=== PATIENT | female | born 1935 | race Caucasian/White ===

== ENCOUNTER → 2016-07-19 | Outpatient (CLI) | payer OTHER ==
[~2016-07-19] MED LIST: ACET500C35 PO; CALC-20 PO; CHOL100027 PO; FOLI1TAB7 PO; METH10TA32 PO; MULTTAB58 PO; PRED1SUS3 OPL; VGMOPS OPL
--- NOTE | 2016-07-19 16:52 | MAMMOGRAPHY REPORT ---
BILATERAL DIGITAL DIAGNOSTIC MAMMOGRAM TOMOSYNTHESIS WITH CAD AND TARGETED RIGHT ULTRASOUND: 07/20/19 CLINICAL HISTORY: 80-year-old woman presents for follow-up in the left breast of a grouping of micro calcifications in the upper inner anterior aspect of the breast, and also to reassess the nodular as ymmetry in the middle one third of the right breast, slightly lateral to the nipple on the CC view. Also time of annual screening. TECHNIQUE: Bilateral CC and MLO 2-D digital and tomosynthesis images, spot magnification left CC and ML views were obtained. Current study was also evaluated with a Computer Aided Detection (CAD) sys tem. COMPARISON: Comparison is made to exams dated: 01/04/2016 ultrasound, 01/04/2016 mammogram, 6 ultrasound, 07/01/2015 mammogram, 06/22/2015 mammogram, and 06/18/2014 mammogram - [facility]. BREAST COMPOSITION: The tissue of both breasts is heterogeneously dense, which may obscure small ma sses. FINDINGS: There is a stable amparo-shaped metallic biopsy marker in the upper outer posterior right geoff ast. There are scattered groupings of round microcalcifications bilaterally, stable compared to michael or exams. There is a cluster of differing size punctate amorphous and round microcalcifications in the upper inner anterior left breast which is reevaluated with spot magnification views. On the spo t magnification views this cluster measures approximately 6.7 mm. It does not appear significantly changed comparing back to spot magnification views performed 07/01/2015 and is probably benign. How ever, it was not identified on fulfilled views prior to 2014 and longer stability is needed. Repeat spot magnification views are recommended in 12 months. The nodular asymmetry in the slightly later al middle one third of the right breast on the CC view is less conspicuous compared to prior exams. There is no evidence of a new suspicious mass, focal area of architectural distortion or developing asymmetry bilaterally. Repeat targeted ultrasound was performed in the 11:00 right breast, 1 cm from the nipple, to reevalu ate the ill-defined hypoechoic shadowing area seen on previous ultrasound. This area is less conspi cuous, less hypoechoic and shadowing compared to the prior ultrasound, confirming benignity. IMPRESSION: ACR-BI-RADS CATEGORY 3: PROBABLY BENIGN, TARGETED ULTRASOUND ACR-BI-RADS CATEGORY 3: AR OBABLY BENIGN 1. Stable 6.7 mm cluster of punctate, amorphous and round microcalcifications in the upper inner an terior left breast. Repeat diagnostic mammograms including spot magnification views are recommended in 12 months, to ensure longer stability. 2. Less conspicuous nodular asymmetry in the middle one third of the right breast, confirming benig nity. Overall, no mammographic evidence of malignancy within the right breast. 3. An ill-defined hypoechoic shadowing area in the 11:00 right breast, 1 cm from the nipple seen on prior ultrasound is less conspicuous and has the appearance of sonographically normal tissue on the current ultrasound, confirming benignity. These results and recommendations were discussed with the patient at the time of the exam. Approximately 10% of breast cancers are not detected with mammography. A negative mammographic repor t should not delay biopsy if a clinically suggestive mass is present. Flavia Pederson M.D. ay/:07/19/2016 15:53:17 Lead Solutions Architect: Jodie GARLAND(Tenisha)(Cameron), [facility] letter sent: Follow Up Recommended 3 BI-RADS Code: ACR-BI-RADS Category 3: Probably Benign Ultrasound BI-RADS: ACR-BI-RADS Category 3: P robably Benign
== END | disposition home or self-care (01) ==
LOC: C.MAMM 08:49
PROVIDERS: ATTEND Obstetrics & Gynecology
DX: Z09 Encounter for follow-up examination after completed treatment for conditions other than malignant neoplasm (principal); R93.8 Abnormal findings on diagnostic imaging of other specified body structures; R92.0 Mammographic microcalcification found on diagnostic imaging of breast

== ENCOUNTER → 2017-08-10 | Outpatient (CLI) | payer OTHER ==
[~2017-08-10] MED LIST changes: -FOLI1TAB7 PO; +FOLI1TAB8 PO
--- NOTE | 2017-08-10 15:31 | MAMMOGRAPHY REPORT ---
BILATERAL DIGITAL DIAGNOSTIC MAMMOGRAM TOMOSYNTHESIS WITH CAD: 08/10/2017 CLINICAL HISTORY: 12 month follow-up of left breast calcifications. Due for routine mammography of t he right breast. The patient reports no new lumps or other complaints. TECHNIQUE: Breast tomosynthesis in addition to standard 2D mammography was performed. Current study was also evaluated with a Computer Aided Detection (CAD) system. Bilateral CC and MLO 2D and tomosyn thesis images and spot magnification left CC and ML views were obtained. COMPARISON: Comparison is made to exams dated: 07/19/2016 ultrasound, 07/19/2016 mammogram, 01/04/2016 ultrasound, 01/04/2016 mammogram, 07/01/2015 ultrasound, and 07/01/2015 mammogram - [facility]. BREAST COMPOSITION: The tissue of both breasts is heterogeneously dense, which may obscure small mas ses. FINDINGS: Spot magnification views of the left breast again demonstrate an 8 mm group of punctate and amorphous calcifications within the left upper inner quadrant anteriorly. The fainter calcification s within the group appear slightly increased compared to the June 2015 exam although the overall siz e of the group is not significantly changed. Given the interval increase in the number of calcificat ions, stereotactic biopsy is recommended for further evaluation. The remainder of both breasts are stable compared to prior exams, without suspicious masses, calcific ations, or areas of architectural distortion noted. A biopsy clip is again noted within the right up per outer quadrant from prior benign stereotactic biopsy. Other bilateral benign-appearing calcifica tions are not significantly changed. IMPRESSION: ACR BI-RADS CATEGORY 4: SUSPICIOUS 1. Slight interval increase in the number of calcifications within an 8 mm group within the left uppe r inner quadrant. Given the interval increase in number of calcifications, findings are indeterminat e and stereotactic biopsy is recommended for further evaluation. 2. No mammographic evidence of malignancy in the right breast. Recommen routine follow-up in 1 year. A phone call was made to the physician's office to confirm faxed results were received. The patient has been verbally notified of the results. She tentatively scheduled the biopsy before leaving the [facility]. Approximately 10% of breast cancers are not detected with mammography. A negative mammographic report should not delay biopsy if a clinically suggestive mass is present. Katey Lewis M.D. /:08/10/2017 09:47:17 Head Of Physics: Jodie Valiente, [facility] letter sent: Abnormal 4/5 BI-RADS Code: ACR BI-RADS Category 4: Suspicious
== END | disposition home or self-care (01) ==
LOC: C.MAMM 08:58
PROVIDERS: ATTEND Obstetrics & Gynecology
DX: Z12.31 Encounter for screening mammogram for malignant neoplasm of breast (principal); R92.1 Mammographic calcification found on diagnostic imaging of breast

== ENCOUNTER 2019-12-18 13:58 | Inpatient (IN) ==
[2019-12-18] MEDS ORDERED: cefTRIAXone SODIUM 2,000 MG/70 ML BAG IV STA (14:29)
[2019-12-18] MEDS ORDERED: SODIUM CHLORIDE 0.9% 1000ML 1,000 ML IV SCH (14:30)
--- NOTE | 2019-12-18 14:37 | Emergency Department Note ---
Impression & Plan Weakness, Fever, Acute UTI, Anaplasmosis ED Provider Note Provider: Min Gibbs MD DATE OF SERVICE: 12/18/2019 CHIEF COMPLAINT: Fever, weakness HISTORY OF PRESENT ILLNESS: Patient is a 84-year-old female with a history of rheumatoid arthritis on methotrexate as well as some hearing issues presenting here today complaining of 2 weeks of on and off fever with worsening weakness and nausea with decreased appetite over last several days. Patient states she had negative coronavirus testing on the of this month. Patient had discussed virtual visit with her primary doctor's office yesterday had blood work sent as well as urine sample. Continues to have high fever including today around lunchtime 102.9. Has been using Tylenol regularly. Still feeling quite fatigued and decreased appetite with little intake today. Patient states her hips are low but achy but denies of the pain. Denies urinary symptoms. Denies headache or URI symptoms. Denies feeling short of breath. Denies recent travel or sick exposure. Denies rash. Reviewed with the patient laboratory studies from yesterday. Patient has taken 2 doses cefuroxime thus far one last night and one this morning. States she is normally very healthy. REVIEW OF SYSTEMS: A total of 10 review of systems was obtained and negative except as stated above in the HPI. PAST MEDICAL HISTORY: As noted above MEDICATIONS: Reviewed home medications including current antibiotic with the patient. SOCIAL HISTORY: Lives at home with daughter PHYSICAL EXAM: GENERAL: alert and oriented in no acute distress on stretcher but appears fatigued Head: normocephalic and atraumatic EYES: No injection, discharge or icterus. NECK: Trachea midline. Supple. ENT: Mucous membranes pink and moist. LUNGS: Airway patent. No retractions. Breath sounds clear with good air entry bilaterally. HEART: Regular rate and rhythm. No chest wall tenderness ABDOMEN: Soft and non-tender, without guarding or rebound. SKIN: Acyanotic, warm, dry, without rashes EXTREMITIES: Without swelling, tenderness or deformity NEUROLOGICAL: No focal deficits. No aphasia. No facial droop or slurred speech. EKG: Normal sinus rhythm 84 bpm. No PVCs or PACs. No acute ST segment elevation or depression. Normal QTC. Normal axis. CONTINUOUS CARDIAC MONITORING: was ordered and showed a heart rate of 76 bpm in normal sinus rhythm Patient's hypertension was referred to the hospitalist Patient's laboratory studies and imaging reviewed. Differential includes Viral syndrome, otitis, pharyngitis, pneumonia, influenza, meningitis, urinary tract infection, sepsis, bacteremia, as well as other pathologies. IMPRESSION/MEDICAL DECISION MAKING: Reviewed chart and studies from yesterday including negative COVID test from the 10th, equivocal Lyme screen from yesterday as well as concerning urine sample and positive gram-negative rods and urine culture from yesterday. No leukocytosis on yesterday labs. No significant electrolyte abnormality. This could be related possible UTI or Lyme disease. Blood cultures and basic labs were completed here as well as a lactate and pro calcitonin. Given the achiness in her hips and coming up on a fever of unknown origin a CT the abdomen pelvis was completed. Having of shortness of breath and chest x-ray is completed to exclude occult pneumonia. Question if this could be related to UTI or possible tickborne illness. Given fluid hydration here is initially hypotensive in triage. Chest x-ray unremarkable for pneumothorax or consolidative pneumonia. Slight leukopenia and anemia compared to yesterday's lab values. No significant electrolyte abnormality. Bilirubin AST just above normal but ALT within normal limits. Troponin undetectable. Lipase not elevated. Procalcitonin is elevated at 2.7. Urine still appears positive with nitrates. CT of the abdomen pelvis with some scattered air-fluid levels question physiologic versus neuritis but does not really had significant diarrheal type symptoms. No obstruction noted or other infectious process. Reassessment patient's blood pressure still borderline and given that she has had these recurrent fevers a procalcitonin is elevated and she has significant weakness believe further evaluation as an inpatient is warranted. Unsure if this is again is entirely related to just a UTI but reevaluation she describes some rigors's earlier and no concern for more systemic infection. Lactate likely not elevated. 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 Co nsider repeat COVID in discussion with the hospitalist given the positive anaplasmosis finding will defer at this point. Given some IV Tylenol here. Hospitalist will order alternative medication for anaplasmosis given doxycycline allergy. Patient will be admitted for further observation and monitoring. Patient's blood pressure later did declined to some degree. Given additional IV fluid. Hospitalist aware. DIAGNOSIS: Fever, weakness, acute UTI, anaplasmosis DISPOSITION: Hospitalist will evaluate Patient was agreeable with this plan. Past Med/Surg History Medical History (Updated 12/18/19 @ 18:03 by Mariely Calixto MD) Rheumatoid arthritis Surgical History S/P hysterectomy S/P tonsillectomy Family History Grandmother Breast cancer Brother Myocardial infarction Diabetes Sister Diabetes Other Colon cancer Denies family history of Ovarian cancer Prostate cancer Social History Smoking Status: Never smoker Hx Alcohol Use: No Hx Substance Use: No Preferred Language: Georgian marital status: / Current Living Situation: Family Current Living Situation Comment: lives with daughter Feels Safe at Home: Yes Childhood Exposure to Second-Hand Smoke: No Dental Care, Regularly: Yes Physical Activity Frequency: 3-4 Times per Week Physical Activity Frequency Comment: walking Allergies Allergies Allergy/AdvReac Type Severity Reaction Status Date / Time doxycycline Allergy Intermediate hives Verified 12/18/19 15:03 prednisone Allergy Unknown WELTS AND Verified 12/18/19 15:03 HIVES Sulfa (Sulfonamide AdvReac Unknown interaction Unverified 12/18/19 15:03 Antibiotics) with other medication Home Meds Home Medications Medication Instructions Recorded Confirmed calcium 1 tab PO DAILY tab 09/08/18 12/18/19 [id number]-inosit-silicon 300 mg-200 unit-37.5 mg tablet cholecalciferol (vitamin D3) 50 2,000 unit PO DAILY cap 09/08/18 12/18/19 mcg (2,000 unit) capsule folic acid 800 mcg tablet 800 mcg PO DAILY tab 09/08/18 12/18/19 multivitamin 1 tab PO DAILY 09/08/18 12/18/19 methotrexate sodium 2.5 mg tablet 10 mg PO WEEKLY #48 tab 02/11/19 12/18/19 acetaminophen [Tylenol] 325 mg PO QID PRN 12/18/19 12/18/19 Previous Rx's Medication Instructions Recorded cefuroxime axetil 500 mg tablet 500 mg PO Q12H 14 Days #28 tab 12/17/19 Results & Data (ED) Vital Signs Vital Signs - 24 hr 12/18/19 14:07 12/18/19 15:05 12/18/19 15:15 Temperature 37.5 C Temperature Source Oral Pulse Rate 100 H Pulse Rate [Apical] 78 Pulse Rate from SpO2 Sensor Respiratory Rate 16 18 Respiratory Effort / Characteristics Non-Labored Spontaneous Non-Labored Respiratory Depth Blood Pressure 88/51 L Blood Pressure [Left Arm] 109/49 L Blood Pressure Mean 63 Blood Pressure Mean [Left Arm] 69 Pulse Oximetry 95 98 Oxygen Delivery Method Room Air Room Air Sepsis Recent Fever Within 48 Hours No Sepsis New/Unexplained Change in Mental Status No Sepsis Action Taken by Nursing No Action Required 12/18/19 15:30 12/18/19 15:32 12/18/19 16:09 Temperature Temperature Source Pulse Rate Pulse Rate [Apical] 76 75 Pulse Rate from SpO2 Sensor Respiratory Rate 18 18 Respiratory Effort / Characteristics Respiratory Depth Blood Pressure Blood Pressure [Left Arm] 98/60 L 98/47 L Blood Pressure Mean Blood Pressure Mean [Left Arm] 72 64 Pulse Oximetry 97 97 Oxygen Delivery Method Room Air Room Air Room Air Sepsis Recent Fever Within 48 Hours Sepsis New/Unexplained Change in Mental Status Sepsis Action Taken by Nursing 12/18/19 17:37 12/18/19 18:00 12/18/19 18:20 Temperature 38 C H 37.3 C Temperature Source Oral Oral Pulse Rate Pulse Rate [Apical] 77 80 75 Pulse Rate from SpO2 Sensor Respiratory Rate 18 18 20 Respiratory Effort / Characteristics Non-Labored Respiratory Depth Normal Blood Pressure Blood Pressure [Left Arm] 96/52 L 91/46 L 88/45 L Blood Pressure Mean Blood Pressure Mean [Left Arm] 66 61 59 Pulse Oximetry 97 95 93 Oxygen Delivery Method Room Air Room Air Room Air Sepsis Recent Fever Within 48 Hours Sepsis New/Unexplained Change in Mental Status Sepsis Action Taken by Nursing 12/18/19 19:00 Temperature Temperature Source Pulse Rate 68 Pulse Rate [Apical] 69 Pulse Rate from SpO2 Sensor 68 Respiratory Rate 24 Respiratory Effort / Characteristics Respiratory Depth Blood Pressure 94/45 L Blood Pressure [Left Arm] 94/45 L Blood Pressure Mean 63 Blood Pressure Mean [Left Arm] 61 Pulse Oximetry 92 Oxygen Delivery Method Room Air Sepsis Recent Fever Within 48 Hours Sepsis New/Unexplained Change in Mental Status Sepsis Action Taken by Nursing Laboratory Data Result diagrams: 12/18/19 14:50 12/18/19 14:50 Lab Results 12/18/19 12/18/19 12/18/19 Range/Units 14:50 14:50 14:50 WBC 4.60 L (4.8-10.8) K/uL RBC 3.42 L (4.2-5.4) M/uL Hgb 11.0 L (12.0-16.0) g/dL Hct 32.7 L (37-47) % MCV 95.6 (80-100) fL MCH 32.2 (25-34) pg MCHC 33.6 (32-36) g/dL RDW Std Deviation 51.4 H (36.4-46.3) fL RDW Coeff of Abdulaziz 14.9 H (11.5-14.5) % Plt Count 118 L (130-400) K/uL MPV 8.6 (7.4-10.4) fL Immature Gran % (Auto) 0.2 % Neut % (Auto) 83.8 % Lymph % (Auto) 9.3 % [place] % (Auto) 6.5 % Eos % (Auto) 0.0 % Baso % (Auto) 0.2 % Neut # (Auto) 3.85 (1.4-6.5) K/uL Lymph # (Auto) 0.43 L (1.2-3.4) K/uL [place] # (Auto) 0.30 (0.11-0.59) K/uL Eos # (Auto) 0.00 (0-0.5) K/uL Baso # (Auto) 0.01 (0-0.2) K/uL Immature Gran # (Auto) 0.01 (0.00-0.02) K/uL PT 12.5 H (9.0-12.0) Seconds INR 1.2 H (0.9-1.1) APTT 30.2 (21.0-31.0) Seconds PTT Ratio 1.1 Sodium 135 L (136-145) mmol/L Potassium 3.9 (3.5-5.1) mmol/L Chloride 101 (98-107) mmol/L Carbon Dioxide 25 (21-32) mmol/L Anion Gap 9.0 (3-11) BUN 19 H (7-18) mg/dl Creatinine 0.74 (0.6-1.2) mg/dl Est Cr Clr Drug Dosing 51.8 ml/min Est GFR ( Amer) 86.8 Est GFR (Non-Af Amer) 74.9 BUN/Creatinine Ratio 25.7 H (10-20) Glucose 91 (70-99) mg/dl Lactate (0.4-2.0) mmol/L Calcium 8.7 (8.5-10.1) mg/dl Magnesium 2.0 (1.8-2.4) mg/dl Total Bilirubin 1.1 H (0.2-1) mg/dl AST 67 H (15-37) U/L ALT 57 (12-78) U/L Alkaline Phosphatase 245 H (45-117) U/L Troponin I < 0.015 (0-0.045) ng/ml Total Protein 6.6 (6.4-8.2) gm/dl Albumin 2.5 L (3.4-5.0) gm/dl Globulin 4.1 H (2.5-4.0) gm/dl Albumin/Globulin Ratio 0.6 L (0.9-2) Lipase 65 L (73-393) U/L Procalcitonin (0-0.5) ng/ml Urine Color Urine Appearance (Clear) Urine pH (4.5-7.5) Ur Specific [place] (1.000-1.030) Urine Protein (Negative) Urine Glucose (UA) (Negative) Urine Ketones (Negative) Urine Blood (Negative) Urine Nitrite (Negative) Urine Bilirubin (Negative) Urine Urobilinogen (Negative) Ur Leukocyte Esterase (Negative) Urine WBC (Auto) (0-5) /hpf Urine RBC (Auto) (0-4) /hpf U Hyaline Cast (Auto) (0-5) /lpf U Epithel Cells (Auto) (0-5) /lpf Urine Bacteria (Auto) (Negative) Ur Renal Epithelial Cell Urine Yeast Anaplasma Smear See Comment A 12/18/19 12/18/19 12/18/19 Range/Units 14:50 14:50 15:15 WBC (4.8-10.8) K/uL RBC (4.2-5.4) M/uL Hgb (12.0-16.0) g/dL Hct (37-47) % MCV (80-100) fL MCH (25-34) pg MCHC (32-36) g/dL RDW Std Deviation (36.4-46.3) fL RDW Coeff of Abdulaziz (11.5-14.5) % Plt Count (130-400) K/uL MPV (7.4-10.4) fL Immature Gran % (Auto) % Neut % (Auto) % Lymph % (Auto) % [place] % (Auto) % Eos % (Auto) % Baso % (Auto) % Neut # (Auto) (1.4-6.5) K/uL Lymph # (Auto) (1.2-3.4) K/uL [place] # (Auto) (0.11-0.59) K/uL Eos # (Auto) (0-0.5) K/uL Baso # (Auto) (0-0.2) K/uL Immature Gran # (Auto) (0.00-0.02) K/uL PT (9.0-12.0) Seconds INR (0.9-1.1) APTT (21.0-31.0) Seconds PTT Ratio Sodium (136-145) mmol/L Potassium (3.5-5.1) mmol/L Chloride (98-107) mmol/L Carbon Dioxide (21-32) mmol/L Anion Gap (3-11) BUN (7-18) mg/dl Creatinine (0.6-1.2) mg/dl Est Cr Clr Drug Dosing ml/min Est GFR ( Amer) Est GFR (Non-Af Amer) BUN/Creatinine Ratio (10-20) Glucose (70-99) mg/dl Lactate 1.2 (0.4-2.0) mmol/L Calcium (8.5-10.1) mg/dl Magnesium (1.8-2.4) mg/dl Total Bilirubin (0.2-1) mg/dl AST (15-37) U/L ALT (12-78) U/L Alkaline Phosphatase (45-117) U/L Troponin I (0-0.045) ng/ml Total Protein (6.4-8.2) gm/dl Albumin (3.4-5.0) gm/dl Globulin (2.5-4.0) gm/dl Albumin/Globulin Ratio (0.9-2) Lipase (73-393) U/L Procalcitonin 2.75 H (0-0.5) ng/ml Urine Color [place] Urine Appearance Clear (Clear) Urine pH 5.0 (4.5-7.5) Ur Specific [place] 1.037 H (1.000-1.030) Urine Protein 1+ H (Negative) Urine Glucose (UA) Negative (Negative) Urine Ketones 1+ H (Negative) Urine Blood Negative (Negative) Urine Nitrite Positive A (Negative) Urine Bilirubin Negative (Negative) Urine Urobilinogen Negative (Negative) Ur Leukocyte Esterase 1+ H (Negative) Urine WBC (Auto) 10-30 H (0-5) /hpf Urine RBC (Auto) 0-4 (0-4) /hpf U Hyaline Cast (Auto) 10-30 H (0-5) /lpf U Epithel Cells (Auto) >30 H (0-5) /lpf Urine Bacteria (Auto) Negative (Negative) Ur Renal Epithelial Cell Not Reportable Urine Yeast Not Reportable Anaplasma Smear Administered Medications Discontinued Medications Acetaminophen (Acetaminophen 500 Mg Tab) 1,000 mg PO NOW STA Stop: 12/18/19 17:01 Last Admin: 12/18/19 17:38 Dose: Not Given Documented by: [id number] Sodium Chloride (Nss 1000ml) 750 mls @ 999 mls/hr IV .Q46M TONYA Stop: 12/18/19 16:29 Last Infusion: 12/18/19 16:50 Dose: 0 mls/hr Documented by: [id number] Admin: 12/18/19 16:10 Dose: 999 mls/hr Documented by: [id number] Sodium Chloride (Nss 1000ml) 1,000 mls @ 999 mls/hr IV .Q1H1M TONYA Stop: 12/18/19 15:30 Last Infusion: 12/18/19 16:14 Dose: 0 mls/hr Documented by: [id number] Admin: 12/18/19 15:14 Dose: 999 mls/hr Documented by: [id number] Ceftriaxone Sodium (Rocephin) 2,000 mg in 70 mls @ 140 mls/hr IV NOW STA Stop: 12/18/19 14:58 Last Infusion: 12/18/19 15:43 Dose: 0 mls/hr Documented by: [id number] Admin: 12/18/19 15:13 Dose: 140 mls/hr Documented by: [id number] Acetaminophen (Ofirmev) 1,000 mg in 100 mls @ 400 mls/hr IV NOW STA Stop: 12/18/19 17:32 Last Infusion: 12/18/19 17:53 Dose: 0 mls/hr Documented by: [id number] Admin: 12/18/19 17:38 Dose: 400 mls/hr Documented by: [id number] Sodium Chloride (Nss 1000ml) 1,000 mls @ 999 mls/hr IV .Q1H1M ONE Stop: 12/18/19 19:27 Last Infusion: 12/18/19 19:26 Dose: 0 mls/hr Documented by: [id number] Admin: 12/18/19 18:25 Dose: 999 mls/hr Documented by: [id number] Ioversol (Ioversol 100ml) 94 ml IV ONCE ONE Stop: 12/18/19 15:48 Last Admin: 12/18/19 15:47 Dose: 94 ml Documented by: [id number] Ondansetron HCl (Ondansetron Inj 2 Mg/Ml 2 Ml Vial) 4 mg IV NOW STA Stop: 12/18/19 18:10 Last Admin: 12/18/19 18:20 Dose: 4 mg Documented by: [id number] Discharge Plan Visit Data Chief Complaint: Fever Stated Complaint: FEVER GETTING WORSE ED Provider: Min Gibbs Discharge Problem: Weakness, Fever, Acute UTI, Anaplasmosis Patient Disposition: Being Evaluated by Hospitalist Discharge Instructions Interventions: ED Discharge Assessment Last Done: 12/18/19 19:25 Forms Stand Alone Forms: [facility], [facility] Prescriptions Prescriptions: No Action cefuroxime axetil 500 mg tablet 500 mg PO Q12H 14 Days Qty: 28 RF: 0 cholecalciferol (vitamin D3) 2,000 unit capsule 2,000 unit PO DAILY RF: 0 folic acid 800 mcg tablet 800 mcg PO DAILY RF: 0 multivitamin [Daily Multi-Vitamin] tablet 1 tab PO DAILY RF: 0 Ca [id number]-N2-yiouba-inos-silicon 300-200-37.5 mg-unit-mg tablet 1 tab PO DAILY RF: 0 methotrexate sodium 2.5 mg tablet 10 mg PO WEEKLY Qty: 48 RF: 0 acetaminophen [Tylenol] 325 mg Tablet 325 mg PO QID PRN (Reason: Pain) RF: 0 Referrals Referrals: Chauncey Poe III, CRNP [Primary Care Provider] - Discharge Problem: Fever Qualifiers: Fever type: unspecified Qualified Code(s): R50.9 - Fever, unspecified
[2019-12-18 15:02] LABS: Basophils # (auto) 0.01 K/uL (0-0.2); Basophils % (auto) 0.2 %; Hematocrit (blood only) 32.7 % (37-47); Immature Granulocytes # (auto) 0.01 K/uL (0.00-0.02); Immature Granulocytes % (auto) 0.2 %; Lymphocytes # (auto) 0.43 K/uL (1.2-3.4); Lymphocytes % (auto) 9.3 %; Mean Corpuscular Hemoglobin 32.2 pg (25-34); Mean Corpuscular Hgb Conc 33.6 g/dL (32-36); Mean Corpuscular Volume 95.6 fL (80-100); Mean Platelet Volume 8.6 fL (7.4-10.4); Monocytes % (auto) 6.5 %; Neutrophils # (auto) 3.85 K/uL (1.4-6.5); Neutrophils % (auto) 83.8 %; Platelet Count 118 K/uL (130-400); RDW Coefficient of Variation 14.9 % (11.5-14.5); RDW Standard Deviation 51.4 fL (36.4-46.3); Red Blood Count 3.42 M/uL (4.2-5.4)
--- NOTE | 2019-12-18 15:09 | XRay Report ---
XR chest 1V portable CLINICAL HISTORY: SEPSIS COMPARISON STUDY: No previous studies for comparison. FINDINGS: Lung volumes are mildly diminished. There is blunting of the left costophrenic angle. There is no evidence for pulmonary edema. Cardiomediastinal silhouette is unremarkable. Note is made of le ftward curvature of the thoracic spine. IMPRESSION: Trace left pleural effusion. ACT 112: Negative or not required by law. Electronically signed by: Renan Maddox M.D. 12/18/2019 3:07 PM
[2019-12-18 15:20] LABS: Alanine Aminotransferase 57 U/L (12-78); Albumin Level 2.5 gm/dl (3.4-5.0); Aspartate Aminotransferase 67 U/L (15-37); BUN Creatinine Ratio 25.7 (10-20); Blood Urea Nitrogen 19 mg/dl (7-18); Calcium 8.7 mg/dl (8.5-10.1); Carbon Dioxide 25 mmol/L (21-32); Chloride 101 mmol/L (98-107); Creatinine Clr Calc Pharmacy 51.8 ml/min; Est GFR (African American) 86.8; Est GFR (Non-African American) 74.9; Glucose 91 mg/dl (70-99); Lipase 65 U/L (73-393); Potassium 3.9 mmol/L (3.5-5.1); Sodium 135 mmol/L (136-145)
[2019-12-18 15:23] LABS: INR 1.2 (0.9-1.1); Partial Thromboplastin Ratio 1.1; Partial Thromboplastin Time 30.2 Seconds (21.0-31.0); Prothrombin Time 12.5 Seconds (9.0-12.0)
[2019-12-18 15:25] LABS: Albumin Globulin Ratio 0.6 (0.9-2); Alkaline Phosphatase 245 U/L (45-117); Bilirubin,Total 1.1 mg/dl (0.2-1); Globulin 4.1 gm/dl (2.5-4.0); Total Protein 6.6 gm/dl (6.4-8.2); Troponin I < 0.015 ng/ml (0-0.045)
[2019-12-18 15:32] LABS: Appearance Urine Clear (Clear); Color Urine Orange; Glucose Urine UA Negative (Negative); Protein Urine 1+ (Negative); Specific Gravity Urine 1.037 (1.000-1.030)
[2019-12-18 15:33] LABS: Bacteria Urine Automated Negative (Negative); Bilirubin Urine Negative (Negative); Blood Urine Negative (Negative); Epithelial Cell Urine Auto >30 /lpf (0-5); Ictotest Urine Negative (Negative); Ketones Urine 1+ (Negative); Leukocyte Esterase Urine 1+ (Negative); Nitrite Urine Positive (Negative); RBC Urine Automated 0-4 /hpf (0-4); Urobilinogen Urine Negative (Negative)
[2019-12-18] MEDS ORDERED: IOVERSOL 100ml IV ONE (15:47)
--- NOTE | 2019-12-18 16:06 | CT Scan Report ---
ABDOMEN AND PELVIS CT WITH IV CONTRAST CT DOSE: 273.97 mGy.cm HISTORY: Acute fever with nausea nausea, fever, hips ache TECHNIQUE: Multiaxial CT images of the abdomen and pelvis were performed following the IV administrat ion of 94 cc of Optiray 320, A dose lowering technique was utilized adhering to the principles of [place]. COMPARISON STUDY: None. FINDINGS: Trace pleural effusions with mild dependent bibasilar opacities favoring atelectasis. There is no pne umatosis or pneumoperitoneum. Imaged inferior cardiac chambers are unremarkable. Coronary artery calc ifications. Spleen is moderately enlarged, 15.2 cm. Pancreas and adrenal glands are unremarkable. Mil dly contracted gallbladder. Common bile duct measures 7 mm transversely. Indeterminate 4 mm calcifica tion is noted in the region of the duodenum which appears to be outside of the biliary tree. Periport al edema. Liver is otherwise unremarkable. Patency of the hepatic and portal veins. Kidneys are unremarkable. Urinary bladder wall thickening with partial distention. Trace free pelvic fluid. Uterus is not well visualized and may be surgically absent. Plaque the abdominal aorta without aneurysm. No definite adenopathy. Scattered small bowel air-fluid levels. Nonobstructive bowel gas p attern. Colonic diverticulosis. Mild fecal retention. Visualized appendix appears noninflamed. Mild g eneralized body wall edema. Demineralized appearance of the bones. Degenerative changes of the spine, pelvis and hips. No acute fracture. IMPRESSION: 1. No bowel obstruction or bowel wall thickening. 2. Noninflamed appendix. Multiple scattered small bowel air-fluid levels may be physiologic. In the c linical setting of reported nausea, enteritis should also be considered. 3. Trace pleural effusions. 4. Additional findings as above. ACT 112: Negative or not required by law. The above report was generated using voice recognition software. It may contain grammatical, syntax o r spelling errors. Electronically signed by: Fortunato Johnson M.D. 12/18/2019 4:05 PM
[2019-12-18] MEDS: SODIUM CHLORIDE 0.9% 1000ML 750 ML IV SCH (16:10)
[2019-12-18] MEDS: ACETAMINOPHEN 500 MG TAB PO STA ×2 (17:10→17:38)
[2019-12-18] MEDS ORDERED: ACETAMINOPHEN 1,000 MG/100 ML VIAL IV STA (17:18)
--- NOTE | 2019-12-18 17:41 | History & Physical Report ---
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 very well and then would convert to amoxicillin 1000 mg p.o. BID for possi ble Lyme's, Western blot pending - if negative can stop Rocephin or amoxicillin after UTI treated;if positive also for Lyme disease then would continue for 21 days total -Patient is allergic to doxycycline which is the treatment of choice for anaplasmosis, will use rifampin 300 mg BID x 10d-she prefers IV meds at this point as she cannot take p.o. very well and then can convert to p.o. at the time of discharge -Supportive care with Tylenol, Zofran -Follow BCx -NSS at 125 mL/h x 1 day, received 2 L NSS in the ER (2) Acute UTI: -Diagnosed 12/16, follow urine cultures for sensitivities, currently growing gram-negative rods -Rocephin to treat possible Lyme's disease with equivocal IgM, as well as urinary tract infection. Will hold cefuroxime as per [employer] meds - took 1 dose so far. Follow blood cultures, urine culture Procalcitonin elevated which is likely secondary to both UTI and anaplasmosis (3) Fever: -Secondary to above, Tylenol prn -Was COVID tested on 12/04 and was negative, unlikely COVID at this point, not tested on admission due to have anaplasmosis as above. (4) Weakness: -Secondary to above -PT/OT consult (5) Rheumatoid arthritis: -Takes methotrexate 10 mg on , will hold secondary to infections as above for few days (6) Elevated LFTs: Likely secondary to anaplasmosis as above. She denies abdominal pain CT abdomen/pelvis without abnormalities of the liver or gallbladder except mild distention Follow LFTs in the morning (7) Thrombocytopenia: Platelets mildly low at 118 down from 200 yesterday With splenomegaly on CT-question if this is secondary to anaplasmosis? Anaplasmosis can also cause thrombocytopenia Follow CBC (8) Hyponatremia: Sodium mildly low at 135 on admission likely secondary to dehydration Hydrating with IV fluids Follow BMP in the morning (9) DVT prophylaxis: - teds CODE: Full code Dispo: From home, likely to remain in the hospital x 1-2 days History of Present Illness Primary Care Provider: Chauncey Poe III, FRANCISCO This is a 84-year-old female with PMHx of rheumatoid arthritis on methotrexate who was recently seen by her PCP for complaints of fever which have been ongoing for the past 2 weeks. She had a virtual visit with her PCP for fever of 100.1. She was tested for COVID on 12/05/2019 and was negative. After minimal improvement in fever she had a second virtual visit with her PCP yesterday, a urine culture was obtained which appeared to be positive growing gram-negative rods and was started on cefuroxime on 12/17/2019. Patient is here today with her son at bedside for worsening symptoms including waxing and waning fever of greater than 100.5, fatigue, malaise, poor appetite, nausea and seeking further investigation of her symptoms. Patient found to have leukopenia, thrombocytopenia, elevated AST and alk phos. While here, patient was checked for anaplasmosis which is positive in the ER. Allergies Allergy/AdvReac Type Severity Reaction Status Date / Time doxycycline Allergy Intermediate hives Verified 12/18/19 15:03 prednisone Allergy Unknown WELTS AND Verified 12/18/19 15:03 HIVES Sulfa (Sulfonamide AdvReac Unknown interaction Unverified 12/18/19 15:03 Antibiotics) with other medication Home Medications Home Medications Medication Instructions Recorded Confirmed Type calcium 1 tab PO DAILY tab 09/08/18 12/18/19 History gvps-X2-qthzrcoe-inosit-silicon 300 mg-200 unit-37.5 mg tablet cholecalciferol (vitamin D3) 50 2,000 unit PO DAILY cap 09/08/18 12/18/19 History mcg (2,000 unit) capsule folic acid 800 mcg tablet 800 mcg PO DAILY tab 09/08/18 12/18/19 History multivitamin 1 tab PO DAILY 09/08/18 12/18/19 History methotrexate sodium 2.5 mg tablet 10 mg PO WEEKLY #48 tab 02/11/19 12/18/19 History cefuroxime axetil 500 mg tablet 500 mg PO Q12H 14 Days #28 tab 12/17/19 12/18/19 Rx acetaminophen [Tylenol] 325 mg PO QID PRN 12/18/19 12/18/19 History Past Med/Surg History Medical History (Updated 12/18/19 @ 18:03 by Mariely Calixto MD) Rheumatoid arthritis Surgical History S/P hysterectomy S/P tonsillectomy Family History Grandmother Breast cancer Brother Myocardial infarction Diabetes Sister Diabetes Other Colon cancer Denies family history of Ovarian cancer Prostate cancer Social History Smoking Status: Never smoker Hx Alcohol Use: No Hx Substance Use: No Preferred Language: Latvian marital status: / Current Living Situation: Family Current Living Situation Comment: lives with daughter Feels Safe at Home: Yes Childhood Exposure to Second-Hand Smoke: No Dental Care, Regularly: Yes Physical Activity Frequency: 3-4 Times per Week Physical Activity Frequency Comment: walking Review of Systems Review of Systems: Constitutional: Sign fever, sweats and chills, + malaise, + fatigue Eyes: No diplopia, no worsening or blurred vision ENT: normal hearing, no trouble swallowing Respiratory: No cough, sputum, dyspnea at rest or on exertion Cardiovascular: No chest pain, tightness or palpitations Abdomen: + Poor appetite, no pain, + nausea, no vomiting, diarrhea or constipation Musculoskeletal: No joint pain, calf pain, swelling Neurologic: No focal weakness, numbness/tingling, or balance problems Psychiatric: No anxiety or depression Skin: No rash or itch Physical Exam Physical Exam: General: awake, alert, no apparent distress, + fatigued, + ill- appearing Head: Normocephalic, atraumatic ENT: PERRL, EOMI, no pharyngeal exudate, mucous membranes moist Chest: + Slightly diminished breath sounds at bases, otherwise clear to auscultation, on room air, no adventitious breath sounds Cardiac: Regular rate and rhythm, no murmur, no JVD, normal peripheral pulses, good capillary refill Abdominal: NABS x 4 quadrants, soft, nondistended, nontender to palpation, no rebound or guarding Extremities: Normal inspection, no peripheral edema or erythema, calfs nontender to palpation Psych: Normal mood and affect Neuro: AAO x 3, no gross motor deficits, speech is clear, no peripheral sensory deficits Results & Data Results & Data ([facility]) Vital Signs (Past 12 Hours) Vital Signs Temp Pulse Pulse Resp BP BP Pulse Ox 12/18/19 16:09 75 18 98/47 L 97 12/18/19 15:30 76 18 98/60 L 97 12/18/19 15:15 78 18 109/49 L 98 12/18/19 14:07 37.5 C 100 H 16 88/51 L 95 Laboratory Results 12/18/19 12/18/19 12/18/19 Range/Units 15:15 14:50 14:50 WBC (4.8-10.8) K/uL RBC (4.2-5.4) M/uL Hgb (12.0-16.0) g/dL Hct (37-47) % MCV (80-100) fL MCH (25-34) pg MCHC (32-36) g/dL RDW Std Deviation (36.4-46.3) fL RDW Coeff of Abdulaziz (11.5-14.5) % Plt Count (130-400) K/uL MPV (7.4-10.4) fL Immature Gran % (Auto) % Neut % (Auto) % Lymph % (Auto) % [place] % (Auto) % Eos % (Auto) % Baso % (Auto) % Neut # (Auto) (1.4-6.5) K/uL Lymph # (Auto) (1.2-3.4) K/uL Mingo # (Auto) (0.11-0.59) K/uL Eos # (Auto) (0-0.5) K/uL Baso # (Auto) (0-0.2) K/uL Immature Gran # (Auto) (0.00-0.02) K/uL Peripher Smr Path Cons PT (9.0-12.0) Seconds INR (0.9-1.1) APTT (21.0-31.0) Seconds PTT Ratio Sodium (136-145) mmol/L Potassium (3.5-5.1) mmol/L Chloride (98-107) mmol/L Carbon Dioxide (21-32) mmol/L Anion Gap (3-11) BUN (7-18) mg/dl Creatinine (0.6-1.2) mg/dl Est Cr Clr Drug Dosing ml/min Est GFR ( Amer) Est GFR (Non-Af Amer) BUN/Creatinine Ratio (10-20) Glucose (70-99) mg/dl Lactate 1.2 (0.4-2.0) mmol/L Calcium (8.5-10.1) mg/dl Magnesium (1.8-2.4) mg/dl Total Bilirubin (0.2-1) mg/dl AST (15-37) U/L ALT (12-78) U/L Alkaline Phosphatase (45-117) U/L Troponin I (0-0.045) ng/ml Total Protein (6.4-8.2) gm/dl Albumin (3.4-5.0) gm/dl Globulin (2.5-4.0) gm/dl Albumin/Globulin Ratio (0.9-2) Lipase (73-393) U/L Procalcitonin 2.75 H (0-0.5) ng/ml Urine Color Tamms Urine Appearance Clear (Clear) Urine pH 5.0 (4.5-7.5) Ur Specific [place] 1.037 H (1.000-1.030) Urine Protein 1+ H (Negative) Urine Glucose (UA) Negative (Negative) Urine Ketones 1+ H (Negative) Urine Blood Negative (Negative) Urine Nitrite Positive A (Negative) Urine Bilirubin Negative (Negative) Urine Urobilinogen Negative (Negative) Ur Leukocyte Esterase 1+ H (Negative) Urine WBC (Auto) 10-30 H (0-5) /hpf Urine RBC (Auto) 0-4 (0-4) /hpf U Hyaline Cast (Auto) 10-30 H (0-5) /lpf U Epithel Cells (Auto) >30 H (0-5) /lpf Urine Bacteria (Auto) Negative (Negative) Ur Renal Epithelial Cell Not Reportable Urine Yeast Not Reportable Anaplasma Smear Anaplasma Comment 12/18/19 12/18/19 12/18/19 Range/Units 14:50 14:50 14:50 WBC 4.60 L (4.8-10.8) K/uL RBC 3.42 L (4.2-5.4) M/uL Hgb 11.0 L (12.0-16.0) g/dL Hct 32.7 L (37-47) % MCV 95.6 (80-100) fL MCH 32.2 (25-34) pg MCHC 33.6 (32-36) g/dL RDW Std Deviation 51.4 H (36.4-46.3) fL RDW Coeff of Abdulaziz 14.9 H (11.5-14.5) % Plt Count 118 L (130-400) K/uL MPV 8.6 (7.4-10.4) fL Immature Gran % (Auto) 0.2 % Neut % (Auto) 83.8 % Lymph % (Auto) 9.3 % Mingo % (Auto) 6.5 % Eos % (Auto) 0.0 % Baso % (Auto) 0.2 % Neut # (Auto) 3.85 (1.4-6.5) K/uL Lymph # (Auto) 0.43 L (1.2-3.4) K/uL Mingo # (Auto) 0.30 (0.11-0.59) K/uL Eos # (Auto) 0.00 (0-0.5) K/uL Baso # (Auto) 0.01 (0-0.2) K/uL Immature Gran # (Auto) 0.01 (0.00-0.02) K/uL Peripher Smr Path Cons Pending PT 12.5 H (9.0-12.0) Seconds INR 1.2 H (0.9-1.1) APTT 30.2 (21.0-31.0) Seconds PTT Ratio 1.1 Sodium 135 L (136-145) mmol/L Potassium 3.9 (3.5-5.1) mmol/L Chloride 101 (98-107) mmol/L Carbon Dioxide 25 (21-32) mmol/L Anion Gap 9.0 (3-11) BUN 19 H (7-18) mg/dl Creatinine 0.74 (0.6-1.2) mg/dl Est Cr Clr Drug Dosing 51.8 ml/min Est GFR ( Amer) 86.8 Est GFR (Non-Af Amer) 74.9 BUN/Creatinine Ratio 25.7 H (10-20) Glucose 91 (70-99) mg/dl Lactate (0.4-2.0) mmol/L Calcium 8.7 (8.5-10.1) mg/dl Magnesium 2.0 (1.8-2.4) mg/dl Total Bilirubin 1.1 H (0.2-1) mg/dl AST 67 H (15-37) U/L ALT 57 (12-78) U/L Alkaline Phosphatase 245 H (45-117) U/L Troponin I < 0.015 (0-0.045) ng/ml Total Protein 6.6 (6.4-8.2) gm/dl Albumin 2.5 L (3.4-5.0) gm/dl Globulin 4.1 H (2.5-4.0) gm/dl Albumin/Globulin Ratio 0.6 L (0.9-2) Lipase 65 L (73-393) U/L Procalcitonin (0-0.5) ng/ml Urine Color Urine Appearance (Clear) Urine pH (4.5-7.5) Ur Specific [place] (1.000-1.030) Urine Protein (Negative) Urine Glucose (UA) (Negative) Urine Ketones (Negative) Urine Blood (Negative) Urine Nitrite (Negative) Urine Bilirubin (Negative) Urine Urobilinogen (Negative) Ur Leukocyte Esterase (Negative) Urine WBC (Auto) (0-5) /hpf Urine RBC (Auto) (0-4) /hpf U Hyaline Cast (Auto) (0-5) /lpf U Epithel Cells (Auto) (0-5) /lpf Urine Bacteria (Auto) (Negative) Ur Renal Epithelial Cell Urine Yeast Anaplasma Smear See Comment A Anaplasma Comment Pending Diagnostic Findings ABDOMEN AND PELVIS CT WITH IV CONTRAST CT DOSE: 273.97 mGy.cm HISTORY: Acute fever with nausea nausea, fever, hips ache TECHNIQUE: Multiaxial CT images of the abdomen and pelvis were performed following the IV administration of 94 cc of Optiray 320, A dose lowering technique was utilized adhering to the principles of ALARA. COMPARISON STUDY: None. FINDINGS: Trace pleural effusions with mild dependent bibasilar opacities favoring atelectasis. There is no pneumatosis or pneumoperitoneum. Imaged inferior cardiac chambers are unremarkable. Coronary artery calcifications. Spleen is moderately enlarged, 15.2 cm. Pancreas and adrenal glands are unremarkable. Mildly contracted gallbladder. Common bile duct measures 7 mm transversely. Indeterminate 4 mm calcification is noted in the region of the duodenum which appears to be outside of the biliary tree. Periportal edema. Liver is otherwise unremarkable. Patency of the hepatic and portal veins. Kidneys are unremarkable. Urinary bladder wall thickening with partial distention. Trace free pelvic fluid. Uterus is not well visualized and may be surgically absent. Plaque the abdominal aorta without aneurysm. No definite adenopathy. Scattered small bowel air-fluid levels. Nonobstructive bowel gas pattern. Colonic diverticulosis. Mild fecal retention. Visualized appendix appears noninflamed. Mild generalized body wall edema. Demineralized appearance of the bones. Degenerative changes of the spine, pelvis and hips. No acute fracture. IMPRESSION: 1. No bowel obstruction or bowel wall thickening. 2. Noninflamed appendix. Multiple scattered small bowel air-fluid levels may be physiologic. In the clinical setting of reported nausea, enteritis should also b e considered. 3. Trace pleural effusions. 4. Additional findings as above. XR chest 1V portable CLINICAL HISTORY: SEPSIS COMPARISON STUDY: No previous studies for comparison. FINDINGS: Lung volumes are mildly diminished. There is blunting of the left costophrenic angle. There is no evidence for pulmonary edema. Cardiomediastinal silhouette is unremarkable. Note is made of leftward curvature of the thoracic spine. IMPRESSION: Trace left pleural effusion. ECG Additional Comments: 18-DEC-2019 15:02:12 [facility]-EDSTAT ROUTINE RETRIEVAL Normal sinus rhythm Low voltage QRS Borderline ECG When compared with ECG of 08-MAR-2013 11:45, No significant change was found 25mm/s 10mm/mV 150Hz 9.0.9 12SL 241 IKE: 16 Referred by: REFERRED SELF Unconfirmed Vent. rate [address] interval 204 ms QRS duration 70 ms QT/QTc 354/418 ms P-R-T axes 59 65 71 Code Status & VTE Plan Code Status Full code-discussed with the patient and her son at bedside Supervising Physician Co-Signing Physician Notes PA Supervision Note: I personally saw and examined the patient. I verified all ruiz points and agree with CHAPINCITO Ramesh with the following exceptions and/or additions: Patient is an 84-year-old female with a history of rheumatoid arthritis on methotrexate, here with 2 weeks now of fevers, myalgias, malaise, very poor appetite, generalized weakness and nausea. She was worked up as an outpatient was negative for COVID on 12/04 as above. She was then found of UTI on 12/16 and started treatment for this. She felt very poorly and came to the ER and was found to have anaplasmosis on her smear here along with elevated LFTs, thrombocytopenia and leukopenia. History and ROS reviewed as above Vitals reviewed Gen: Frail appearing, AAO x3, appears ill, NAD HEENT: Anicteric sclerae, EOMI, mucous membranes dry CV: RRR no mgr nl S1S2 Pulm: Mild crackles at the bases that cleared with deep inspiration, otherwise clear Abd: +BS soft NT ND no masses or hernias Ext: No edema, 2+ DP pulses Skin: No rashes, warm/dry Neuro: Moves all extremities but is generally weak throughout 4/5 in strength Laboratory values reviewed Imaging reviewed ECG reviewed 84-year-old female with history of rheumatoid arthritis on methotrexate, here with febrile illness secondary to anaplasmosis and possible Lyme disease. With plan outlined as above Starting IV rifampin given doxycycline allergy and would recommend treatment with rifampin for 10 days total Follow LFTs Treating for possible coinfection with Lyme disease as well as UTI with IV Rocephin for now and this can be converted to amoxicillin but will follow up on urine culture results and Western blot for Lyme disease Supportive care for malaise and poor appetite, IV fluids for hydration Follow BMP, LFTs, CBC, and procalcitonin in the morning Recommend holding methotrexate at least temporarily in the setting of acute infection PG Care Time/CCT Total # of Minutes Spent Total Time Spent with Patient: Total time spent is greater than 50% in coordination of care (as documented) at patient's floor/unit and/or counseling patient: Coding Level of Care Code 34439 OBS Care - Level 3 Diagnoses Anaplasmosis A77.49 Acute UTI N39.0 Fever R50.9 Fever type: unspecified Weakness R53.1 Rheumatoid arthritis M06.9 Elevated LFTs R79.89 Thrombocytopenia D69.6 Hyponatremia E87.1 DVT prophylaxis Z29.9 (1) Fever Fever type: unspecified Qualified Code(s): R50.9 - Fever, unspecified
[2019-12-18] MEDS ORDERED: ONDANSETRON INJ 2 MG/ML 2 ML VIAL IV STA (18:09)
[2019-12-18] MEDS ORDERED: SODIUM CHLORIDE 0.9% 1000ML 1,000 ML IV ONE (18:27)
[2019-12-18] MEDS ORDERED: ACETAMINOPHEN 325 MG TAB PO PRN ×2 (19:53)
[2019-12-18] MEDS ORDERED: ONDANSETRON INJ 2 MG/ML 2 ML VIAL IV PRN (19:53)
[2019-12-18] MEDS: SODIUM CHLORIDE 0.9% 1000ML 1,000 ML IV SCH (20:19)
[2019-12-18] MEDS: rifAMPin 300 MG in DEXTROSE 5% 500 ML IV SCH (20:23)
[2019-12-18] MEDS ORDERED: AMOXICILLIN 500 MG CAP PO SCH (21:00)
[2019-12-18] MEDS ORDERED: rifAMPin 300 MG CAPSULE PO SCH (21:00)
[2019-12-19] MEDS: SODIUM CHLORIDE 0.9% 1000ML 1,000 ML IV SCH ×2 (04:17→12:21)
[2019-12-19] MEDS: SODIUM CHLORIDE 0.9% 1000ML 750 ML IV SCH (05:37)
[2019-12-19 06:57] LABS: Hematocrit (blood only) 28.5 % (37-47); Hemoglobin 9.8 g/dL (12.0-16.0); Mean Corpuscular Hemoglobin 32.8 pg (25-34); Mean Corpuscular Hgb Conc 34.4 g/dL (32-36); Mean Corpuscular Volume 95.3 fL (80-100); RDW Coefficient of Variation 15.1 % (11.5-14.5); Red Blood Count 2.99 M/uL (4.2-5.4); White Blood Count 3.01 K/uL (4.8-10.8)
[2019-12-19 07:27] LABS: Albumin Globulin Ratio 0.6 (0.9-2); BUN Creatinine Ratio 23.6 (10-20); Bilirubin Direct 0.7 mg/dl (0-0.2); Bilirubin,Total 1.3 mg/dl (0.2-1); Calcium 7.2 mg/dl (8.5-10.1); Creatinine Clr Calc Pharmacy 80.4 ml/min; Est GFR (African American) 102.4; Est GFR (Non-African American) 88.4; Globulin 3.5 gm/dl (2.5-4.0); Potassium 3.6 mmol/L (3.5-5.1); Total Protein 5.5 gm/dl (6.4-8.2)
[2019-12-19 07:29] LABS: Mean Platelet Volume 8.8 fL (7.4-10.4); Platelet Count 87 K/uL (130-400)
[2019-12-19 07:31] LABS: ANC (manual) 2.25 K/uL (1.4-6.5); Monocytes # (manual) 0.16 K/uL (0.11-0.59); Monocytes % (manual) 5.2 %; Neutrophils # (manual) 2.25 K/uL (1.4-6.5); Neutrophils % (manual) 74.8 %; Platelet Estimate Decreased (Normal)
[2019-12-19] MEDS: MULTIVITAMIN TAB PO SCH (08:06)
[2019-12-19] MEDS: CHOLECALCIFEROL 1,000 UNITS 25 MCG TAB PO SCH (08:06)
[2019-12-19] MEDS: CALCIUM 600MG + VIT D 400 IU TAB PO SCH (08:06)
[2019-12-19] MEDS: FOLIC ACID 400 MCG TAB PO SCH (08:13)
[2019-12-19] MEDS: rifAMPin 300 MG in DEXTROSE 5% 500 ML IV SCH (08:13)
--- NOTE | 2019-12-19 08:29 | Hospitalist Progress Note ---
Date of Service December 19, 2019 Assessment & Plan (1) Anaplasmosis: -Anaplasmosis smear positive -Equivocal Lyme IgM, neg IgG- Factious disease recommends to have a trial of doxycycline at this time (2) Acute UTI: -Diagnosed 12/16, Pseudomonas pansensitive ID recommends Cipro p.o. (3) Fever: -Secondary to above, Tylenol prn -Was COVID tested on 12/04 and was negative, unlikely COVID at this point, not tested on admission due to have anaplasmosis as above. (4) Weakness: -Secondary to above -PT/OT consult (5) Rheumatoid arthritis: -Takes methotrexate 10 mg on , will hold secondary to infections as above for few days (6) Elevated LFTs: Likely secondary to anaplasmosis as above. She continues to deny abdominal pain CT abdomen/pelvis without abnormalities of the liver or gallbladder except mild distention (7) Thrombocytopenia: Platelets mildly low at 118 down from 200 yesterday With splenomegaly on CT-question if this is secondary to anaplasmosis? Anaplasmosis can also cause thrombocytopenia (8) Hyponatremia: Sodium mildly low at 135 on admission now back to normal (9) DVT prophylaxis: - teds CODE: Full code Dispo: From home, likely to remain in the hospital x 1-2 days Admission and Anticipated Discharge Date Admission Date: December 18, 2019 Subjective pt is feeling better but still fatigued family is at the bedside and updated did have ID consult today, requests to push forward with Doxycycline although listed as allergy Review of Systems Review of Systems: Mild distress and fatigue no headache, blurry or double vision no speech or swallowing issues no chest pain, pressure or palpitations no shortness of breath, cough or wheezes no abdominal pain, nausea or vomiting, diarrhea or constipation no dysuria, hematuria or frequency no focal joint pain or swelling no back pain, CVA tenderness or radicular pain no bruising, bleeding or rashes no focal signs of weakness or numbness or altered sensation no complaints or anxiety or depression. Physical Exam Physical Exam: The patient appeared well nourished and normally developed. Vital signs as documented. No fever since 172912/18/19 Head exam is normocephalic atraumatic no scleral icterus Neck is without JVD, thyromegaly, or carotid bruits. Lungs are clear to auscultation, no focal loss of breath sounds Cardiac exam, Rhythm is regular.. No murmurs, rubs or gallops. Abdominal exam reveals normal bowel sounds, soft non tender, no masses Extremities are nonedematous and both pedal pulses are present Neurologic exam is alert and oriented, no focal loss of strength or sensation Skin is without bruises or rashes Psychologically is without concerns for anxiety or depression. Results & Data Results & Data ([facility]) Vital Signs (Past 12 Hours) Vital Signs Temp Pulse Pulse Resp BP Pulse Ox 12/19/19 07:08 98.6 F 63 18 95/52 L 96 12/19/19 04:38 97.9 F 61 20 98/51 L 95 12/18/19 23:59 60 12/18/19 22:53 97.7 F 65 18 101/55 L 95 12/18/19 21:02 97/48 L PG Care Time/CCT Total # of Minutes Spent Total Time Spent with Patient: Total time spent is greater than 50% in coordination of care (as documented) at patient's floor/unit and/or counseling patient: Coding Level of Care Code 04886 Subseq Hosp Care Lvl 3 Diagnoses Anaplasmosis A77.49 Acute UTI N39.0 Fever R50.9 Fever type: unspecified Weakness R53.1 Rheumatoid arthritis M06.9 Elevated LFTs R79.89 Thrombocytopenia D69.6 Hyponatremia E87.1 DVT prophylaxis Z29.9 (1) Fever Fever type: unspecified Qualified Code(s): R50.9 - Fever, unspecified
[2019-12-19] MEDS ORDERED: CIPROFLOXACIN / D5W 400 MG/200 ML BAG IV SCH (08:45)
[2019-12-19 10:06] LABS: Anaplasmosis Smear(Rpt to DOH) Pos for Anaplasma
[2019-12-19] MEDS ORDERED: cefTRIAXone SODIUM 1,000 MG in DEXTROSE 5% 50 ML IV SCH (16:00)
[2019-12-19] MEDS ORDERED: DiphenhydrAMINE HCL 50 MG/ML VIAL IV PRN (16:35)
[2019-12-19] MEDS: DOXYCYCLINE HYCLATE 100 MG CAP PO SCH (20:02)
[2019-12-19] MEDS: CIPROFLOXACIN 500 MG TAB PO SCH (21:43)
[2019-12-20 06:34] LABS: BUN Creatinine Ratio 19.1 (10-20); Calcium 7.5 mg/dl (8.5-10.1); Creatinine Clr Calc Pharmacy 72.1 ml/min; Est GFR (African American) 98.8; Est GFR (Non-African American) 85.2; Potassium 3.7 mmol/L (3.5-5.1)
[2019-12-20 06:41] LABS: Albumin Globulin Ratio 0.5 (0.9-2); Bilirubin,Total 0.7 mg/dl (0.2-1); Globulin 3.8 gm/dl (2.5-4.0); Total Protein 5.8 gm/dl (6.4-8.2)
[2019-12-20] MEDS: CALCIUM 600MG + VIT D 400 IU TAB PO SCH (09:05)
[2019-12-20] MEDS: FOLIC ACID 400 MCG TAB PO SCH (09:05)
[2019-12-20] MEDS: CHOLECALCIFEROL 1,000 UNITS 25 MCG TAB PO SCH (09:05)
[2019-12-20] MEDS: DOXYCYCLINE HYCLATE 100 MG CAP PO SCH (09:05)
[2019-12-20] MEDS: CIPROFLOXACIN 500 MG TAB PO SCH (09:05)
[2019-12-20] MEDS: MULTIVITAMIN TAB PO SCH (09:06)
--- NOTE | 2019-12-20 11:56 | Discharge Summary ---
Date of Service December 20, 2019 Admission HPI Per Admitting Provider This is a 84-year-old female with PMHx of rheumatoid arthritis on methotrexate who was recently seen by her PCP for complaints of fever which have been ongoing for the past 2 weeks. She had a virtual visit with her PCP for fever of 100.1. She was tested for COVID on 12/05/2019 and was negative. After minimal improvement in fever she had a second virtual visit with her PCP yesterday, a urine culture was obtained which appeared to be positive growing gram-negative rods and was started on cefuroxime on 12/17/2019. Patient is here today with her son at bedside for worsening symptoms including waxing and waning fever of greater than 100.5, fatigue, malaise, poor appetite, nausea and seeking further investigation of her symptoms. Patient found to have leukopenia, thrombocytopenia, elevated AST and alk phos. While here, patient was checked for anaplasmosis which is positive in the ER. Principal Diagnosis Anaplasmosis Positive Lyme titer Pseudomonas urinary tract infection present on admission Discharge Exam The patient appeared well Vital signs as documented. Lungs are clear to auscultation and appear unlabored Cardiac exam, Rhythm is regular.. No murmurs, rubs or gallops. Abdominal exam reveals normal bowel sounds, soft non tender, no masses Extremities are nonedematous and both pedal pulses are normal. Neurologic exam is alert and oriented, no focal loss of strength or sensation Skin is without bruises or rashes Psychologically is without concerns for anxiety or depression. Discharge Data Allergies Allergy/AdvReac Type Severity Reaction Status Date / Time doxycycline Allergy Intermediate hives Verified 12/18/19 15:03 prednisone Allergy Unknown WELTS AND Verified 12/18/19 15:03 HIVES Sulfa (Sulfonamide AdvReac Unknown interaction Unverified 12/18/19 15:03 Antibiotics) with other medication Consultations 12/18/19 16:36 ED Decision to Admit Stat 12/18/19 19:53 Consult Case Management - Discharge Planning Routine 12/19/19 08:38 Consult Infectious Diseases Routine 12/20/19 11:19 Consult Health Information Management Routine Ordered Studies 12/18/19 14:29 CT abd pelvis IV con only Stat Hospital Course (1) Anaplasmosis: -Anaplasmosis smear positive -Equivocal Lyme IgM, neg IgG- infectious disease recommends doxycycline will complete 14 days (2) Acute UTI: -Diagnosed 12/16, Pseudomonas pansensitive ID recommends Cipro p.o. (3) Fever: -Secondary to above, Tylenol prn -Was COVID tested on 12/04 and was negative, unlikely COVID at this point, not tested on admission due to have anaplasmosis as above. (4) Weakness: improved (5) Rheumatoid arthritis: -Takes methotrexate 10 mg on , will resume one the week after discharge (6) Elevated LFTs: Likely secondary to anaplasmosis as above. She continues to deny abdominal pain CT abdomen/pelvis without abnormalities of the liver or gallbladder except mild distention (7) Thrombocytopenia: Platelets mildly low at 118 down from 200 yesterday With splenomegaly on CT-question if this is secondary to anaplasmosis? Anaplasmosis can also cause thrombocytopenia (8) Hyponatremia: Sodium mildly low at 135 on admission now back to normal Total Time Total Time Spent Total Time Spent (In Minutes): It required greater than 30 minutes to prepare this patient for discharge Discharge Plan Discharge Items Patient Disposition: Home - Self-Care Reason For Visit: ANAPLASMOSIS Discharge Diagnosis: anaplasmosis lyme disease pseudomonas urinary infection present on admission Activity: Resume your previous activity Non-emergency contact: Primary Care Provider Call non-emergency contact if: you have any medication questions and your symptoms worsen Follow-up/Referrals: Chauncey Poe III, CRNP [Primary Care Provider] - Diet: Regular Addtl Attending Provider Instructions: You have been diagnosed with a tickborne illness called anaplasmosis. You possibly may also have Lyme disease. Likely both are treated by the same antibiotics, doxycycline, which she will take for 14 days. He was seen in consultation by infectious disease specialist from [facility] who recommends avoiding milk products multiple vitamins calcium zinc iron or magnesium while taking these antibiotics Please resume your methotrexate on your typically scheduled day Pending Studies at Discharge: No Stand-Alone Forms: [employer], Smoking Cessation Medications and DC Order Prescriptions: New doxycycline hyclate 100 mg Capsule 100 mg PO BID Qty: 26 RF: 0 ciprofloxacin HCl 500 mg Tablet 500 mg PO BID Qty: 12 RF: 0 Continued cholecalciferol (vitamin D3) 2,000 unit capsule 2,000 unit PO DAILY RF: 0 folic acid 800 mcg tablet 800 mcg PO DAILY RF: 0 multivitamin [Daily Multi-Vitamin] tablet 1 tab PO DAILY RF: 0 Ca qpho-M1-fvdltq-inos-silicon 300-200-37.5 mg-unit-mg tablet 1 tab PO DAILY RF: 0 methotrexate sodium 2.5 mg tablet 10 mg PO WEEKLY Qty: 48 RF: 0 acetaminophen [Tylenol] 325 mg Tablet 325 mg PO QID PRN (Reason: Pain) RF: 0 Discontinued cefuroxime axetil 500 mg tablet 500 mg PO Q12H 14 Days Qty: 28 RF: 0 Discharge Orders: Discharge Order (Routine); Ordered 12/20/19 Ordered By: Gokul Pal/Other Patient Handouts: ED Tick Facts Admission Data Admit Date/Time: 12/18/19 17:53 Attending Provider: Gokul Morris Admit Provider: Mariely Calixto Primary Care Provider: Chauncey Poe III Other Providers: Mariely Calixto ; Adam Elizalde ; Michelle Garber ; Emerson Infante I. ; Jared Fritz II ; Leda Braden ; Liu Murray Coding Level of Care Code D/C Day Management >30 mins Diagnoses Anaplasmosis A77.49 Acute UTI N39.0 Fever R50.9 Fever type: unspecified Weakness R53.1 Rheumatoid arthritis M06.9 Elevated LFTs R79.89 Thrombocytopenia D69.6 Hyponatremia E87.1
--- NOTE | 2019-12-20 12:17 | Electrocardiogram Report ---
Test Reason : Blood Pressure : / mmHG Vent. Rate : 084 BPM Atrial Rate : 084 BPM P-R Int : 204 ms QRS Dur : 070 ms QT Int : 354 ms P-R-T Axes : 059 065 071 degrees QTc Int : 418 ms Normal sinus rhythm Low voltage QRS Borderline ECG When compared with ECG of 08-MAR-2013 11:45, No significant change was found Confirmed by Mansoor Rodas ([id number]) on 12/20/2019 12:17:05 PM Referred By: REFERRED SELF Confirmed By:Mansoor Rodas
== END 2019-12-20 12:45 | disposition home or self-care (01) | DRG 868 ==
LOC: ED 13:58 → 2E 13:58 → SUATTDRO 18:57 → OBSVTOIN 18:57 → 2E 19:25